=== PATIENT | female | born 1975 | race Hispanic/Latino ===

== ENCOUNTER 2016-09-09 09:23 | Observation (INO) | payer BC ==
[2016-09-09 09:33] VITALS: O2SAT 100
[2016-09-09] MEDS ORDERED: Sodium Chloride 0.9% 500 ML IV ONE ×2 (09:42→12:44)
--- NOTE | 2016-09-09 09:42 | C.PDOC ---
History Of Present Illness Patient is a 41 y/o F presenting with complaint of opiod withdrawal. Patient reports that she has been using heroin and abusing percocet x 4 years. She reports that she stopped 2 days ago and has been "lack energy" and vomiting since then. She reports she feels tired and fatigued. Denies abdominal pain, but reports some abdominal discomfort. Denies chest pain, shortness of breath, dysuria, or vaginal bleeding. Reports some diarrhea. She reports that she has been taking zofran (prescribed by another MD) at home with some relief. Denies hx of abdomainal surgeries. Denies alcohol use. Time Seen by Provider: 09/09/16 09:36 Chief Complaint (Nursing): Abdominal Pain Past Medical History Vital Signs: Last Vital Signs Temp 97.6 F 09/09/16 09:26 Pulse 74 09/09/16 10:45 Resp 20 09/09/16 10:45 BP 131/75 09/09/16 10:45 Pulse Ox 100 09/09/16 12:53 - Medical History PMH: Asthma Family History: States: No Known Family Hx - Social History Hx Alcohol Use: No Hx Substance Use: Yes - Immunization History Hx Tetanus Toxoid Vaccination: No Hx Influenza Vaccination: No Hx Pneumococcal Vaccination: No Review Of Systems Constitutional: Positive for: Malaise. Negative for: Fever, Chills, Sweats, Weakness ENT: Negative for: Ear Pain Cardiovascular: Negative for: Chest Pain, Palpitations, Orthopnea, Edema, Light Headedness Respiratory: Negative for: Cough, Shortness of Breath, SOB with Excertion, Wheezing Gastrointestinal: Positive for: Nausea, Vomiting, Diarrhea. Negative for: Abdominal Pain, Constipation Genitourinary: Negative for: Dysuria Skin: Negative for: Rash Neurological: Negative for: Weakness Psych: Negative for: Anxiety, Depression, Suicidal ideation Physical Exam - Physical Exam Appears: Well, Non-toxic, No Acute Distress Skin: Normal Color, Warm, Dry (no piloerection, no lacrimation) Head: Atraumatic, Normacephalic Eye(s): bilateral: Normal Inspection, PERRL, EOMI Neck: Normal, Supple Chest: Symmetrical, No Deformity Cardiovascular: Rhythm Regular Respiratory: Normal Breath Sounds, No Rales, No Rhonchi, No Wheezing Gastrointestinal/Abdominal: Soft, No Tenderness, No Mass, No Distention Back: Normal Inspection, No CVA Tenderness Extremity: Normal ROM ED Course And Treatment - Laboratory Results Result Diagrams: 09/09/16 10:13 09/09/16 10:13 O2 Sat by Pulse Oximetry: 100 Medical Decision Making Medical Decision Making: Patient was offered to speak to detox counselors about detox program at [facility]. However, she is currently refusing and requesting to just "make me comfortable." She has no homicidal or suicidal ideation. Will give clonidine for htn likely from opiod withdrawal (as patient has no other htn hx), as well as anti-emetic and IVF for symptoms. Will get labs, ua and poc to r/o and electrolyte abnormality. 10:55AM BP and symptoms improving after clonidine, reglan and IVF. Labs grossly normal. P:UA and poc 12:27PM Patient reports some improvement in symptoms. Continues to be pending ua and poc 1PM Patient is not . She reports continued nausea and will not eat. Will give additional fluid and anti-emetic. Will sign out to Dr. Dakota Jackson to follow- up ua, po challenge, and reevaluate. ED OBSERVATION Date of observation admission: 09/09/16 Time of observation admission: 10:48 - Observation admission statement Patient is being placed in observation because:: acute heroin withdrawal with vomiting - Goals of Observation Goals of observation are:: iv hydration, monitoring and reevaluation Disposition - Disposition Disposition Time: 10:49 Condition: FAIR - Clinical Impression Clinical Impression: Opioid withdrawal
[2016-09-09] MEDS ORDERED: Sodium Chloride 0.9% 1,000 ML ONE (09:51)
[2016-09-09 10:29] LABS: BASO % 0.5 % (0.0-2.0); HEMATOCRIT 42.5 % (34.0-47.0); LYMPH # 0.9 K/uL (1.0-4.3); LYMPH % 10.6 % (20.0-40.0); MEAN CELL VOLUME 86.6 fL (81.0-99.0); MEAN CORPUSCULAR HEMOGLOBIN 28.7 pg (27.0-31.0); MEAN CORPUSCULAR HGB CONC 33.1 g/dL (33.0-37.0); MEAN PLATELET VOLUME 7.6 fL (7.2-11.7); MONO # 0.2 K/uL (0.0-0.8); MONO % 2.8 % (0.0-10.0); RED CELL DISTRIBUTION WIDTH 12.7 % (11.5-14.5); WHITE BLOOD COUNT 8.5 K/uL (4.8-10.8)
[2016-09-09 10:43] LABS: CHLORIDE 105 mmol/L (98-107)
[2016-09-09 10:44] LABS: POTASSIUM 3.5 mmol/L (3.6-5.2); SODIUM 142 mmol/L (132-148)
[2016-09-09 10:46] LABS: ALB/GLOB RATIO 1.4 (1.0-2.1); ALKALINE PHOSPHATASE 49 U/L (38-126); ALT/SGPT 12 U/L (9-52); AST/SGOT 20 U/L (14-36); BILIRUBIN,TOTAL 0.7 mg/dL (0.2-1.3); BLOOD UREA NITROGEN 21 mg/dL (7-17); CARBON DIOXIDE 24 mmol/L (22-30); GFR AFRICAN-AMERICAN > 60; GLUCOSE,RANDOM 142 mg/dL (65-105); TOTAL PROTEIN 7.6 g/dL (6.3-8.3)
[2016-09-09 10:47] LABS: CALCIUM 9.2 mg/dl (8.6-10.4); MAGNESIUM 1.7 mg/dL (1.6-2.3); PHOSPHOROUS 3.5 mg/dL (2.5-4.5)
[2016-09-09 12:58] LABS: RBC URINE 2 /hpf (0-3); URINE BACTERIA RARE (<OCC); URINE BILIRUBIN NEGATIVE (NEGATIVE); URINE BLOOD NEGATIVE (NEGATIVE); URINE COLOR Yellow (YELLOW); URINE GLUCOSE (UA) NORMAL (Normal); URINE KETONE 1+ mg/dL (NEGATIVE); URINE LEUKOCYTE ESTERASE NEG Leu/uL (Negative); URINE PROTEIN 1+ mg/dL (NEGATIVE); URINE UROBILINOGEN NORMAL mg/dL (0.2-1.0); WBC URINE 2 /hpf (0-5)
[2016-09-09 14:11] VITALS: BP 113/64; PULSE 90; RESP 18; TEMP 98.7
== END 2016-09-09 14:37 | disposition home or self-care (01) ==
LOC: C.ER 09:23 → C.9OBSV 10:49
PROVIDERS: ADMIT Emergency Medicine; ATTEND Emergency Medicine
DX: F11.23 Opioid dependence with withdrawal (principal); I10 Essential (primary) hypertension; J45.909 Unspecified asthma, uncomplicated
CPT/HCPCS: 80053; 81001; 83690; 83735; 84100; 85025; 96360; 96374; G0378; J2405; J2765; J7040